=== PATIENT | male | born 1975 | race American Indian/Alaskan Native ===

== ENCOUNTER 2018-05-29 16:00 | Emergency (ER) | payer MEDICAID, OTHER ==
[2018-05-29 16:00] VITALS: BMI 30.5
[2018-05-29 16:07] VITALS: BP 145/83; PULSE 85; RESP 16; TEMP 98.3; O2SAT 99
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
--- NOTE | 2018-05-29 18:06 | RAD ---
Date of service: 05/29/2018 PROCEDURE: Bilateral Knee Radiographs. HISTORY: trauma, fall with abrasions COMPARISON: None. FINDINGS: BONES: Right Knee: Normal. No fracture. Left Knee: Normal. No fracture. JOINTS: Right Knee: Medial femorotibial compartment joint space narrowing compatible with degenerative joint disease. Left knee: Normal. No osteoarthritis. SOFT TISSUES: Right Knee: A small retained radiodense foreign body is suggested at the lateral right knee subcutaneous soft tissues at the level of the lateral tibial plateau. Left Knee: Normal. JOINT EFFUSION: Right Knee: None. Left Knee: None. OTHER FINDINGS: None. IMPRESSION: No acute fracture or dislocation identified bilaterally. Medial right knee degenerative osteoarthritis. Note is made of a small retained radiodense foreign body at the lateral right subcutaneous soft tissues.
== END 2018-05-29 18:19 | disposition home or self-care (01) ==
LOC: H.ER 16:00
DX: M25.561 Pain in right knee (principal); M25.562 Pain in left knee; S80.219A Abrasion, unspecified knee, initial encounter; Y35.813A Legal intervention involving manhandling, suspect injured, initial encounter; Y92.89 Other specified places as the place of occurrence of the external cause; Z88.0 Allergy status to penicillin
CPT/HCPCS: 73562; 96372; 99282; J1885

== ENCOUNTER 2018-06-09 19:03 | Emergency (ER) | payer MEDICAID, OTHER ==
[2018-06-09 19:03] VITALS: BMI 30.5
[2018-06-09 19:35] VITALS: BP 149/83; PULSE 80; RESP 16; TEMP 97.3; O2SAT 100
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
--- NOTE | 2018-06-10 13:24 | RAD ---
Date of service: 06/09/2018 PROCEDURE: Right foot HISTORY: Posttraumatic pain 2nd digit. COMPARISON: None TECHNIQUE: Standard protocol for this study/examination. FINDINGS: Particular attention directed to the 2nd digit. Distal soft tissue swelling. No foreign body visualized. IMPRESSION: Soft tissue swelling without acute articular or osseous abnormality.
== END 2018-06-09 23:16 | disposition home or self-care (01) ==
LOC: H.ER 19:03
DX: S90.121A Contusion of right lesser toe(s) without damage to nail, initial encounter (principal); W19.XXXA Unspecified fall, initial encounter; Z88.0 Allergy status to penicillin

== ENCOUNTER 2018-07-05 00:23 | Emergency (ER) | payer OTHER ==
[2018-07-05 00:23] VITALS: BMI 30.5
[2018-07-05 00:58] VITALS: O2SAT 98
[2018-07-05] MEDS ORDERED: Alum-Mag Hydrox-Simethicone Susp (30 mL) PO STA (02:26)
[2018-07-05] MEDS ORDERED: Alum-Mag Hydrox-Simethicone Susp (30 mL) ONE (02:41)
[2018-07-05 02:54] LABS: BASO # 0.1 K/uL (0.0-0.2); EOS # 0.2 K/uL (0.0-0.7); HEMOGLOBIN 13.4 g/dL (12.0-18.0); LYMPH # 2.8 K/uL (1.0-4.3); MEAN CELL VOLUME 91.9 fl (80.0-94.0); MEAN CORPUSCULAR HEMOGLOBIN 30.7 pg (27.0-31.0); MEAN CORPUSCULAR HGB CONC 33.4 g/dL (33.0-37.0); MEAN PLATELET VOLUME 9.9 fl (7.2-11.7); MONO # 1.1 K/uL (0.0-0.8); MONO % 13.5 % (0.0-10.0); NEUT # 4.1 K/uL (1.8-7.0); NEUT % 49.5 % (50.0-75.0); RBC 4.35 Mil/uL (4.40-5.90); RED CELL DISTRIBUTION WIDTH 14.3 % (11.5-14.5); WHITE BLOOD COUNT 8.2 K/uL (4.8-10.8)
[2018-07-05 03:03] LABS: ALB/GLOB RATIO 1.2 (1.0-2.1); ALBUMIN 4.1 g/dL (3.5-5.0); ALT/SGPT 38 U/L (21-72); AST/SGOT 33 U/L (17-59); BLOOD UREA NITROGEN 19 mg/dl (9-20); CALCIUM 9.3 mg/dL (8.4-10.2); GFR NON-AFRICAN AMERICAN > 60; LIPASE 225 U/L (23-300)
[2018-07-05 03:42] LABS: SQUAMOUS EPITHIAL < 1 /hpf (0-5); URINE BACTERIA FEW (<OCC); URINE BILIRUBIN NEGATIVE (NEGATIVE); URINE BLOOD NEGATIVE (NEGATIVE); URINE CLARITY CLEAR (Clear); URINE COLOR YELLOW (YELLOW); URINE GLUCOSE (UA) NEG (Normal); URINE LEUKOCYTE ESTERASE NEG Leu/uL (Negative); URINE PROTEIN NEGATIVE (NEGATIVE); URINE UROBILINOGEN 0.2-1.0 mg/dL (0.2-1.0)
[2018-07-05 04:38] VITALS: BP 116/61; PULSE 72; RESP 17; TEMP 98.6
--- NOTE | 2018-07-05 06:58 | ED PDOC ---
HPI: Abdomen Time Seen by Provider: 07/05/18 00:24 Chief Complaint (Nursing): Abdominal Pain History Per: Patient Additional Complaint(s): Pt. states for the past 2 years he's had abdominal pain starting in the epigastric and radiating down to his umbilicus. Pt. states this has been going on intermittently. Also reports having a hernia on the L groin x 1 year. States it goes away when he lies down and returns when he stands up. Denies N/V/D, abdominal pain, fever, dysuria, hematuria, chest pain, SOB. Of note, pt. states he usually takes Protonix but has not taken it in a while. Past Medical History Reviewed: Historical Data, Nursing Documentation, Vital Signs Vital Signs: Last Vital Signs Temp 98.6 F 07/05/18 04:37 Pulse 72 07/05/18 04:37 Resp 17 07/05/18 04:37 BP 116/61 07/05/18 04:37 Pulse Ox 98 07/05/18 04:37 - Medical History PMH: GERD - Family History Family History: States: Unknown Family Hx - Home Medications Home Medications: Ambulatory Orders Medication Instructions Recorded Bacitracin Ointment [Bacitracin] 30 gm TOP BID #1 tube 05/29/18 Pantoprazole Sodium [Protonix] 40 mg PO DAILY PRN #10 ect 07/05/18 - Allergies Allergies/Adverse Reactions: Allergies Allergy/AdvReac Type Severity Reaction Status Date / Time Penicillins Allergy RASH Verified 07/05/18 00:58 shellfish derived Allergy ITCHING Verified 07/05/18 00:58 Review of Systems ROS Statement: Except As Marked, All Systems Reviewed And Found Negative Gastrointestinal: Positive for: Abdominal Pain Physical Exam - Physical Exam Appears: Positive for: Well, Non-toxic, No Acute Distress Skin: Positive for: Normal Color, Warm. Negative for: Rash Eye Exam: Positive for: Normal appearance, EOMI, PERRL. Negative for: Scleral icterus (b/l) Neck: Positive for: Normal, Painless ROM Cardiovascular/Chest: Positive for: Regular Rate, Rhythm Respiratory: Positive for: Normal Breath Sounds. Negative for: Respiratory Distress Gastrointestinal/Abdominal: Positive for: Normal Exam, Soft. Negative for: Tenderness Male Genital Exam: Negative for: no hernia (L inguinal hernia which is reducible), scrotum tenderness (R), scrotum tenderness (L), testicular tenderness (R), testicular tenderness (L) Back: Positive for: Normal Inspection. Negative for: L CVA Tenderness, R CVA Tenderness Extremity: Positive for: Normal ROM Neurologic/Psych: Positive for: Alert, Oriented (x3). Negative for: Aphasia, Facial Droop - Laboratory Results Result Diagrams: 07/05/18 02:51 07/05/18 02:51 - ECG O2 Sat by Pulse Oximetry: 98 - Progress ED Course And Treament: Labs, pepcid 40mg IV, maalox 30ml PO ordered. On re-evaluation, pt. reports feeling much better. Disposition - Clinical Impression Clinical Impression: Acid reflux - Patient ED Disposition Is Patient to be Admitted: No - Disposition Referrals: [facility] [Outside] [facility] [Outside] Disposition: Routine/Home Disposition Time: 04:15 Condition: STABLE Additional Instructions: ANAM DONOVAN, thank you for letting us take care of you today. Your provider was Mayo Alvarez MD and you were treated for ABD PAIN. The emergency medical care you received today was directed at your acute symptoms. If you were prescribed any medication, please fill it and take as directed. It may take several days for your symptoms to resolve. Return to the Emergency Department if your symptoms worsen, do not improve, or if you have any other problems. Please contact your doctor or call one of the physicians/clinics you have been referred to that are listed on the Patient Visit Information form that is included in your discharge packet. Bring any paperwork you were given at discharge with you along with any medications you are taking to your follow up visit. Our treatment cannot replace ongoing medical care by a primary care provider outside of the emergency department. Thank you for allowing the [facility] team to be part of your care today. If you had an X-Ray or CT scan: A Radiologist will review the ED reading if any change in treatment is needed we will contact you. If you had a blood, urine, or wound culture: It will take several days for the results, if any change in treatment is needed we will contact you. If you had an STI test: It will take 48 hours for the results. Please call after 1 week if you have not heard back. Prescriptions: Pantoprazole Sodium [Protonix] 40 mg PO DAILY PRN #10 ect PRN Reason: abdominal pain Instructions: Acid Reflux (Gastroesophageal Reflux Disease), Adult (DC) Forms: [employer] (German) Print Language: YEMENI
== END 2018-07-05 04:38 | disposition home or self-care (01) ==
LOC: H.ER 00:23
DX: K21.9 Gastro-esophageal reflux disease without esophagitis (principal); Z88.0 Allergy status to penicillin

== ENCOUNTER 2018-07-11 06:10 | Emergency (ER) | payer OTHER ==
[2018-07-11 06:10] VITALS: BMI 30.5
[2018-07-11 07:12] VITALS: RESP 18; O2SAT 98
--- NOTE | 2018-07-11 07:34 | ED PDOC ---
HPI: CCC, URI, Sore Throat Time Seen by Provider: 07/11/18 07:16 Chief Complaint (Nursing): ENT Problem History Per: Patient History/Exam Limitations: no limitations Additional Complaint(s): 42 y/o M presents c/o sore throat, runny nose, frontal pressure-like headache and nasal congestion that began yesterday. 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 Pt lives in a [place], with many possible ill contacts. No recent travel. Pt took omeprazole yesterday as he thought burning sensation on his throat came from stomach acid. Pt denies fever, hearing deficits, visual disturbances, red eyes, pruritus, chest pain, SOB, abdominal pain, nausea, vomiting, change in bowel movement or rash. PMD: none Allergies: Penicillin and shelfish Meds: none PMHx: denied PSHx: R knee arthroscopy FHx: NC SHx: No smoking, occasional alcohol, denies rec drugs. Past Medical History Vital Signs: Last Vital Signs Temp 98.6 F 07/11/18 07:09 Pulse 92 H 07/11/18 07:09 Resp 18 07/11/18 07:09 BP 148/89 07/11/18 07:09 Pulse Ox 98 07/11/18 07:09 - Medical History PMH: GERD - Surgical History Other surgeries: R knee arthroscopy - Family History Family History: States: Unknown Family Hx - Living Arrangements Living Arrangements: Other (girlfriend in a chcf) - Social History Alcohol: None - Home Medications Home Medications: Ambulatory Orders Medication Instructions Recorded RX: Bacitracin Ointment 30 gm TOP BID #1 tube 05/29/18 [Bacitracin] Pantoprazole Sodium [Protonix] 40 mg PO DAILY PRN #10 ect 07/05/18 Fluticasone Nasal [Flonase] 1 spr NS DAILY #1 spr 07/11/18 - Allergies Allergies/Adverse Reactions: Allergies Allergy/AdvReac Type Severity Reaction Status Date / Time Penicillins Allergy RASH Verified 07/11/18 07:09 shellfish derived Allergy ITCHING Verified 07/11/18 07:09 Curb-65 Severity Score - CURB-65 Severity Score Confusion: No Respiratory Rate greater than/equal to 30: No Systolic BP <90 or Diastolic BP less than/equal 60mmHg: No Age >64: No Curb-65 Score: 0 Percentage 30-day mortality: 0.6% Review of Systems Constitutional: Negative for: Chills Eyes: Negative for: Pain ENT: Positive for: Nose Congestion, Mouth Pain, Throat Pain, Throat Swelling. Negative for: Ear Pain Cardiovascular: Negative for: Chest Pain, Palpitations, Orthopnea Respiratory: Negative for: Cough, Shortness of Breath, Wheezing Gastrointestinal: Negative for: Nausea, Vomiting, Abdominal Pain, Diarrhea, Constipation Genitourinary Male: Negative for: Dysuria, Frequency, Hematuria Musculoskeletal: Negative for: Back Pain Physical Exam - Physical Exam Appears: Positive for: No Acute Distress Head Exam: Positive for: ATRAUMATIC, NORMAL INSPECTION Skin: Positive for: Normal Color, Warm Eye Exam: Positive for: Normal appearance, EOMI. Negative for: Periorbital swelling, Conjunctival injection ENT: Positive for: Nasal Congestion, Pharyngeal Erythema. Negative for: Tonsillar Exudate, Tonsillar Swelling Neck: Positive for: Normal, Painless ROM, Supple Cardiovascular/Chest: Positive for: Regular Rate, Rhythm Respiratory: Positive for: Normal Breath Sounds. Negative for: Crackles, Rales, Wheezing Gastrointestinal/Abdominal: Positive for: Normal Exam, Bowel Sounds, Soft. Negative for: Tenderness, Organomegaly, Mass Back: Negative for: L CVA Tenderness, R CVA Tenderness Extremity: Positive for: Normal ROM. Negative for: Tenderness Neurologic/Psych: Positive for: Alert, Oriented - ECG O2 Sat by Pulse Oximetry: 98 Medical Decision Making Medical Decision Making: At 07:38, pt was evaluated and examined. Erythema on posterior oropharynx and nasal turbinates, nasal congestion and frontal headache. Considering URI. Will treat conservatively. --Nasal decongestant and oral wash. --Will discharge home. Disposition - Clinical Impression Clinical Impression: Sore throat, Chemical exposure - Patient ED Disposition Is Patient to be Admitted: No - Disposition Disposition: Routine/Home Disposition Time: 09:52 Condition: FAIR Prescriptions: Fluticasone Nasal [Flonase] 1 spr NS DAILY #1 spr Instructions: Sore Throat in Adults Forms: [facility] (Chinese)
[2018-07-11 08:00] VITALS: BP 120/80; PULSE 72; TEMP 98
== END 2018-07-11 08:00 | disposition home or self-care (01) ==
LOC: H.ER 06:10
DX: J02.9 Acute pharyngitis, unspecified (principal); Z77.098 Contact with and (suspected) exposure to other hazardous, chiefly nonmedicinal, chemicals